=== PATIENT | female | born 1955 | race Caucasian/White ===

== ENCOUNTER → 2018-11-03 | Outpatient (CLI) | payer BC ==
--- NOTE | 2018-11-03 13:32 | XR ---
Bilateral hands HISTORY: Pain 3 views of each hand submitted on a total 6 images. Bone mineralization, joint spaces and alignment are maintained. Mild hypertrophic change present at t he proximal interphalangeal joint of the second digit of the left hand, metacarpophalangeal joint fir st digit left and right hand and also the first carpometacarpal left hand . Crescentic ossific densit y present at the dorsal aspect of the distal interphalangeal joint of the second digit of the left oliva nd appears chronic. Arthropathy change also present at the interphalangeal first digit right hand, se cond proximal interphalangeal joint. IMPRESSION: Osteoarthritis. Indeterminate crescentic density dorsal aspect of the distal interphalang eal joint of the second digit could be due to remote trauma.
--- NOTE | 2018-11-03 14:18 | XR ---
Bilateral knees HISTORY: Knee pain 3 views of the right and 3 views of the left knee are submitted on a total 6 images Bone mineralization, joint spaces and alignment are maintained. Minimal marginal spurring present at the medial compartment left knee and at the bilateral patellofemoral joints. No evident joint effusio ns. IMPRESSION: Mild osteoarthritis.
== END ==
LOC: RADXRMAIN 10:34
PROVIDERS: ATTEND Midwife
DX: M19.041 Primary osteoarthritis, right hand (principal); M19.042 Primary osteoarthritis, left hand; M17.0 Bilateral primary osteoarthritis of knee

== ENCOUNTER → 2019-08-16 | Outpatient (CLI) | payer BC ==
--- NOTE | 2019-08-16 12:21 | US ---
EXAMINATION TYPE: US transvaginal DATE OF EXAM: 08/16/2019 COMPARISON: NONE CLINICAL HISTORY: N95.9 Post menopausal bleeding. TECHNIQUE: Transvaginal (TV). Date of LMP: 10 years ago EXAM MEASUREMENTS: Uterus: 8.2 x 3.6 x 5.4 cm Endometrial Stripe: 0.4 cm Right Ovary: 2.0 x 1.1 x 2.1 cm Left Ovary: 2.0 x 0.8 x 2.1 cm 1. Uterus: Retroverted calcification in fundus is additionally noted 2. Endometrium: Few small cysts are incidentally seen although the endometrial thickness is within n ormal limits measuring 0.4 cm. 3. Right Ovary: wnl 4. Left Ovary: wnl 5. Bilateral Adnexa: wnl 6. Posterior cul-de-sac: no free fluid IMPRESSION: Endometrial thickness is within normal limits for a postmenopausal female. However given the patient' s history direct visualization and sampling should remain a consideration.
== END | disposition home or self-care (01) ==
LOC: RADUSWWP 08:06
PROVIDERS: ATTEND Family Medicine
DX: N95.9 Unspecified menopausal and perimenopausal disorder (principal)
CPT/HCPCS: 76830

== ENCOUNTER → 2020-04-03 | Outpatient (CLI) | payer BC ==
[2020-04-03 11:50] LABS: Basophils % (A) 0 %; Eosinophils % (A) 0 %; HCT 38.5 % (34.0-46.0); HGB 12.2 gm/dL (11.4-16.0); Hypochromasia Slight; Lymphocytes % (A) 15 %; MCH 28.4 pg (25.0-35.0); MCHC 31.8 g/dL (31.0-37.0); MCV 89.5 fL (80.0-100.0); Mean Platelet Volume 7.6; Monocytes # (A) 0.5 k/uL (0-1.0); Monocytes % (A) 8 %; Neutrophils % (A) 75 %; Platelet Count 364 k/uL (150-450); RDW 13.7 % (11.5-15.5); WBC 6.7 k/uL (3.8-10.6)
[2020-04-03 15:57] LABS: African American GFR (CKD) 91.6 (60.0-200.0); Albumin 3.3 g/dL (3.80-4.90); Albumin/Globulin Ratio 1.5 (1.60-3.17); Anion Gap 8.9 mmol/L (4.00-12.00); BUN/Creat Ratio 11.25 Ratio (12.00-20.00); Calcium 8.6 mg/dL (8.7-10.3); Carbon Dioxide 32.1 mmol/L (21.6-31.8); Globulin 2.2 g/dL (1.6-3.3); Potassium 3.6 mmol/L (3.5-5.5); Total Bilirubin 0.3 mg/dL (0.3-1.2); Total Protein 5.5 g/dL (6.2-8.2)
== END | disposition home or self-care (01) ==
LOC: LABWHC1 10:54
PROVIDERS: ATTEND Family Medicine
DX: Z03.818 Encounter for observation for suspected exposure to other biological agents ruled out (principal); R19.7 Diarrhea, unspecified
CPT/HCPCS: 36415; 80053; 85025; 87635